=== PATIENT | female | born 1935 | race Caucasian/White ===

== ENCOUNTER 2016-06-06 22:30 | Emergency (ER) | payer OTHER ==
[~2016-06-06] VITALS: Ht 160 cm; Wt 55.0 kg
[2016-06-06 22:34] VITALS: BP 179/83; PULSE 62; RESP 16; TEMP 98.2; O2SAT 98
[2016-06-06] MEDS ORDERED: DIGO0.25 PO (22:42)
[2016-06-06] MEDS ORDERED: METF500T PO (22:42)
[2016-06-06] MEDS ORDERED: METO50TA11 PO (22:42)
[2016-06-06] MEDS ORDERED: AMLO5TAB2 PO (22:42)
[2016-06-06] MEDS ORDERED: GLIP5TAB8 PO (22:42)
[2016-06-06] MEDS ORDERED: LEVO.075 PO (22:43)
[2016-06-06] MEDS ORDERED: SODIUM CHLORIDE 0.9% FLUSH 5 ML FLUSH IVF PRN (23:00)
--- NOTE | 2016-06-06 23:14 | PD ---
HPI . Chest pain Chief Complaint: Chest Pain Time Seen by Provider: 22:51 Travel History International Travel<30 days: No Contact w/Intl Traveler<30days: No Traveled to known affect area: No History of Present Illness HPI This patient presents with the chief complaint of chest pain which started about 6:00 tonight. She states that the pain is intermittent and very mild. She calls it "pings." She also states she has pain in her left shoulder. That started about the same time. The shoulder pain is exacerbated by movement. The patient and her family state that she has been traveling in a [employer] truck today and has used her left arm to get in and out of the truck. The patient denies any associated symptoms such as shortness of breath, nausea or diaphoresis. This patient is from [place]. We have no old records here. However, she is very lucid and knowledgeable about her medical history. She underwent a three-vessel CABG in 2008. Following this surgery, she had episodes of a rapid heart rate which prompted the placement of a pacemaker. She states that her pacemaker does NOT also function as a defibrillator. She states that the pacemaker was placed to control her heart rate. She states she has had no problems at all with her heart since 2008. She states that she follows up regularly with her kettle hand. She states that she had a nuclear stress test done about a year ago and it was negative. PFSH Past Medical History Cardiac Catheterization: Yes High Cholesterol: Yes Diabetes: Yes Patient Takes Glucophage: Yes Hypertension: Yes Thyroid Disease: Yes (hypo) Tetanus Vaccination: Unknown Influenza Vaccination: Yes ?: Not Past Surgical History Body Medical Devices: pacemaker Coronary Artery Bypass Graft: Yes (triple) Pacemaker: Yes Social History Alcohol Use: No Tobacco Use: No Substance Use: No Allergies-Medications (Allergen,Severity, Reaction): Coded Allergies: Novocain (Verified Allergy, Severe, 06/06/16) Reported Meds & Prescriptions Reported Meds & Active Scripts Active Reported Synthroid (Levothyroxine Sodium) 75 Mcg Tab 75 Mcg PO DAILY Amlodipine (Amlodipine Besylate) 5 Mg Tab 5 Mg PO DAILY Metoprolol Succinate ER 24 HR (Metoprolol Succinate) 50 Mg Tab 50 Mg PO BID Digoxin 0.25 Mg Tab 0.25 Mg PO DAILY Glipizide 5 Mg Tab 5 Mg PO DAILY Take 30 minutes before a meal Metformin (Metformin HCl) 500 Mg Tab 500 Mg PO DAILY With a meal Review of Systems Except as stated in HPI: all other systems reviewed are Neg Cardiovascular: Positive: Chest Pain or Discomfort Respiratory: No: Shortness of Breath Gastrointestinal: No: Nausea Musculoskeletal: Positive: Myalgias Physical Exam Narrative GENERAL: A spry 80-year-old woman who is in no acute distress. SKIN: Warm and dry. HEAD: Atraumatic. Normocephalic. EYES: Pupils equal and round. Extraocular motions are intact. ENT: No nasal bleeding or discharge. Mucous membranes pink and moist. NECK: Trachea midline. Neck is supple. CARDIOVASCULAR: Regular rate and rhythm. Heart sounds are normal. RESPIRATORY: No accessory muscle use. Lungs are clear with full air movement throughout. Chest wall is nontender to palpation. GASTROINTESTINAL: Abdomen soft, non-tender, nondistended. MUSCULOSKELETAL: No obvious deformities. No edema. She does have some tenderness in the left shoulder at the insertion of the pectoralis muscle. NEUROLOGICAL: Awake and alert. No obvious cranial nerve deficits. Motor grossly within normal limits. Normal speech. PSYCHIATRIC: Appropriate mood and affect; insight and judgment normal. Data Data Last Documented VS Vital Signs Date Time Temp Pulse Resp B/P Pulse Ox O2 Delivery O2 Flow Rate FiO2 06/06/16 22:37 68 Room Air 06/06/16 22:34 98.2 16 179/83 98 Orders Basic Metabolic Panel (Bmp) (06/06/16 22:51) Ckmb (Isoenzyme) Profile (06/06/16 22:51) Complete Blood Count With Diff (06/06/16 22:51) Magnesium (Mg) (06/06/16 22:51) Troponin I (06/06/16 22:51) Chest, Single Ap (06/06/16 22:51) Ecg Monitoring (06/06/16 22:51) Bilateral Bp Monitoring (06/06/16 22:51) Iv Access Insert/Monitor (06/06/16 22:51) Oximetry (06/06/16 22:51) Oxygen Administration (06/06/16 22:51) Sodium Chloride 0.9% Flush (Ns Flush) (06/06/16 23:00) CKMB (06/06/16 22:50) CKMB% (06/06/16 22:50) Labs Laboratory Tests Test 06/06/16 22:50 White Blood Count 6.2 TH/MM3 Red Blood Count 4.71 MIL/MM3 Hemoglobin 14.0 GM/DL Hematocrit 41.3 % Mean Corpuscular Volume 87.6 FL Mean Corpuscular Hemoglobin 29.7 PG Mean Corpuscular Hemoglobin 33.9 % Concent Red Cell Distribution Width 13.9 % Platelet Count 225 TH/MM3 Mean Platelet Volume 8.4 FL Neutrophils (%) (Auto) 65.2 % Lymphocytes (%) (Auto) 24.0 % Monocytes (%) (Auto) 6.4 % Eosinophils (%) (Auto) 3.3 % Basophils (%) (Auto) 1.1 % Neutrophils # (Auto) 4.0 TH/MM3 Lymphocytes # (Auto) 1.5 TH/MM3 Monocytes # (Auto) 0.4 TH/MM3 Eosinophils # (Auto) 0.2 TH/MM3 Basophils # (Auto) 0.1 TH/MM3 CBC Comment DIFF FINAL Differential Comment Sodium Level 136 MEQ/L Potassium Level 4.3 MEQ/L Chloride Level 99 MEQ/L Carbon Dioxide Level 27.5 MEQ/L Anion Gap 10 MEQ/L Blood Urea Nitrogen 17 MG/DL Creatinine 0.83 MG/DL Estimat Glomerular Filtration 66 ML/MIN Rate Random Glucose 130 MG/DL Calcium Level 9.0 MG/DL Magnesium Level 1.7 MG/DL Total Creatine Kinase 165 U/L Creatine Kinase MB 2.1 NG/ML Troponin I 0.06 NG/ML [facility] Medical Decision Making Medical Screen Exam Complete: Yes Emergency Medical Condition: Yes Interpretation(s) EKG shows a paced rhythm. No further interpretation is possible Differential Diagnosis Differential diagnosis of chest pain includes but is not limited to musculoskeletal pain, pulmonary embolism, acute coronary syndrome, pneumonia, pleurisy Narrative Course Patient presents for the evaluation of chest and left shoulder pain. Her symptoms are probably muscular in nature. She is anxious to be evaluated and discharged so that she can attend an event tomorrow. I have a low index of suspicion for ACS. If her initial evaluation is negative, I will allow her to go home. CBC & BMP Diagram 06/06/16 22:50 Total CK and CK-MB are normal. Troponin is 0.06. Chest x-ray is negative for acute process. The chest x-ray was independently viewed by me. I have had a long discussion with the patient and her family reguarding the slightly elevated troponin. I have given them 3 options: --admission --repeat trop in 3 hours with admit if it goes up and d/c if it comes down --just leaving now knowing that it is slightly elevated and without fully knowing the meaning of it. The patient would like to just leave now. Family is supportive of that decision. I do not believe that this is an unreasonable decision. Her pain is most likely muscular from pulling herself into a pickup truck several times during the course of the day today. The patient reports that she will follow up with her kettle hand when she gets back home. She will return here if she has any problems prior to leaving the area. Diagnosis Primary Impression: Chest pain Qualified Code: R07.9 - Chest pain, unspecified type Disposition: DISCHARGE HOME Condition: Stable Sarah Pleitez MD Jun 06, 2016 23:14
[2016-06-06 23:25] LABS: BASOPHIL # 0.1 TH/MM3 (0-0.2); BASOPHIL % 1.1 % (0.0-2.0); EOSINOPHIL # 0.2 TH/MM3 (0-0.4); EOSINOPHIL % 3.3 % (0.0-4.0); HEMATOCRIT 41.3 % (35.0-46.0); HEMO FLAGS DIFF FINAL; LYMPHOCYTE # 1.5 TH/MM3 (1.0-4.8); MEAN CELL VOLUME 87.6 FL (80.0-100.0); MEAN CORPUSCULAR HEMOGLOBIN 29.7 PG (27.0-34.0); MEAN CORPUSCULAR HGB CONC 33.9 % (32.0-36.0); MONO % 6.4 % (0.0-8.0); NEUT % 65.2 % (16.0-70.0); PLATELET COUNT 225 TH/MM3 (150-450); RED BLOOD COUNT 4.71 MIL/MM3 (4.00-5.30); RED CELL DISTRIBUTION WIDTH 13.9 % (11.6-17.2); WHITE BLOOD COUNT 6.2 TH/MM3 (4.0-11.0)
[2016-06-06 23:49] LABS: ANION GAP 10 MEQ/L (5-15); BICARBONATE 27.5 MEQ/L (21.0-32.0); BLOOD UREA NITROGEN 17 MG/DL (7-18); CHLORIDE 99 MEQ/L (98-107); CREATINE KINASE 165 U/L (26-192); GLOMERULAR FILTRATION RATE 66 ML/MIN (>89); MAGNESIUM 1.7 MG/DL (1.5-2.5); POTASSIUM 4.3 MEQ/L (3.5-5.1); SODIUM (NA) 136 MEQ/L (136-145)
[2016-06-07 00:02] LABS: CKMB 2.1 NG/ML (0.5-3.6)
--- NOTE | 2016-06-07 00:07 | RADRPT ---
EXAM DATE/TIME: 06/06/2016 23:16 [facility] COMPARISON: No previous studies available for comparison. INDICATIONS : Chest pain. MEDICAL HISTORY : Hypertension. Diabetes mellitus type II. SURGICAL HISTORY : Pacemaker. CABG. ENCOUNTER: Initial ACUITY: 1 day PAIN SCORE: 6/10 LOCATION: Bilateral chest FINDINGS: There is cardiomegaly. Pacer leads overlie right atrium and right ventricle. Postoperative CABG. No f ocal consolidation. No pleural effusion. No pneumothorax. CONCLUSION: 1. Cardiomegaly without focal consolidation or significant effusion. Lee Lyle MD on June 07, 2016 at 0:02 Board Certified Radiologist. This report was verified electronically.
[2016-06-07] MEDS ORDERED: ACETAMINOPHEN 325 MG TAB PO ONE (00:30)
--- NOTE | 2016-06-07 23:47 | EKG ---
Date Performed: 06/06/2016 Time Performed: 22:36:46 PTAGE: 80 years EKG: ELECTRONIC VENTRICULAR PACEMAKER ABNORMAL RHYTHM ECG NO PREVIOUS TRACING DOCTOR: Javad Herrera Interpretating Date/Time 06/07/2016 23:45:42
== END 2016-06-07 01:40 | disposition home or self-care (01) ==
LOC: NEPA 22:30
DX: R07.9 Chest pain, unspecified (principal); M25.512 Pain in left shoulder; R79.89 Other specified abnormal findings of blood chemistry; R94.31 Abnormal electrocardiogram [ECG] [EKG]; E78.00 Pure hypercholesterolemia, unspecified; E11.9 Type 2 diabetes mellitus without complications; E07.9 Disorder of thyroid, unspecified; Z95.1 Presence of aortocoronary bypass graft; Z95.0 Presence of cardiac pacemaker; Z79.84 Long term (current) use of oral hypoglycemic drugs
CPT/HCPCS: 71010; 80048; 82550; 82552; 83735; 84484; 85025; 93005; 99285